=== PATIENT | female | born 1985 | race Caucasian/White ===

== ENCOUNTER 2018-04-12 12:43 | Emergency (ER) | payer BC ==
[2018-04-12] MEDS ORDERED: ISOVUE-370 76%-LOCM 1 ML ONE (13:26)
[2018-04-12 15:02] LABS: #Lymphocytes 1.3 thou/uL (1.20-3.40); #Monocytes 0.4 thou/uL (0.11-0.59); #Neutrophils 9.6 thou/uL (1.40-6.50); %Eosinophils 0.2 % (0.0-10.0); %Lymphocytes 11.8 % (21.0-51.0); %Monocytes 3.4 % (0.0-10.0); %Neutrophils 84.6 % (42.0-75.0); Hemoglobin 13.7 g/dL (12.0-16.0); Mean Corpuscular HGB CONC 33.9 g/dL (32.0-36.0); Mean Corpuscular Hemoglobin 31.5 pg (27.0-31.0); Mean Corpuscular Volume 92.7 fl (81.0-99.0); Mean Platelet Volume 6.7 fL (7.4-10.4); Platelet Count 323 thou/uL (130-400); RBC Distribution Width 11.2 % (11.5-14.5); Red Blood Cell (RBC) Count 4.36 mill/uL (4.20-5.40); White Blood Cell (WBC) Count 11.3 thou/uL (4.8-10.8)
[2018-04-12 15:07] LABS: BHCG - Serum Negative (NEGATIVE); Pregs Control Background? CLEAR/WHITE (CLR/WHITE); Pregs Control Bar Appear? YES (CONTROL BAR)
[2018-04-12 15:20] LABS: Bilirubin Negative (Negative); Blood, Urine Negative (Negative); Clarity CLEAR (Clear); Glucose, Urine (Dipstick) Negative (Negative); Leukocyte Negative (Negative); Nitrite Negative (Negative); Protein, Urine (Dipstick) Negative (Neg-Trace); Specific Gravity, Urine 1.009 (1.002-1.036); Urobilinogen 0.2 mg/dL (0.2-1.0)
[2018-04-12 15:26] LABS: ALT (SGPT) 17 U/L (8-55); AST (SGOT) 15 U/L (5-34); Albumin 4.6 g/dL (3.5-5.0); Alkaline Phosphatase 77 U/L (40-150); Anion Gap 13 mmol/L (10-20); BUN (Urea Nitrogen) 10 mg/dL (7.0-18.7); Bilirubin, Total 0.4 mg/dL (0.2-1.2); CK (CPK) 57 U/L (29-168); Calc. Creatinine Clearance 0 mL/min (70-130); Calcium 9.5 mg/dL (7.8-10.44); Carbon Dioxide 24 mmol/L (22-29); Chloride 105 mmol/L (98-107); Estimated GFR-MDRD 87; Globulin 3.2 g/dL (2.4-3.5); Glucose 101 mg/dL (70-105); Lipase Less than 4 U/L (8-78); Potassium 4.2 mmol/L (3.5-5.1); Protein, Total 7.8 g/dL (6.0-8.3); Sodium 138 mmol/L (136-145)
--- NOTE | 2018-04-12 15:49 | ULT ---
RIGHT UPPER QUADRANT ULTRASOUND: INDICATION: Right upper quadrant abdominal pain. FINDINGS: No focal hepatic lesion is evident. The gallbladder is normal-appearing. No sonographic Andrade's sign is reported. The common bile duct measured 1 mm. Visualized aspects of the pancreas are unremarkable. The right kidney measures 9.2 x 4.3 x 6.1 cm. IMPRESSION: No acute sonographic abnormality. POS: [facility]
[2018-04-12] MEDS ORDERED: Morphine 4 MG/ML VIAL ONE (15:59)
--- NOTE | 2018-04-12 17:38 | CT ---
CT OF THE ABDOMEN AND PELVIS WITH IV CONTRAST: 04/12/18 HISTORY: Right sided abdominal pain. FINDINGS: There is mild bibasilar atelectasis. The liver, spleen, pancreas, adrenal glands and kidneys appear within normal limits. No free fluid or large lymph nodes are evident. There is a normal appendix in the right lower quadran t of the abdomen. The colon demonstrates minimal residual stool. Small bowel is of normal caliber. No free fluid is quyen dent. Bladder, rectum, and perirectal soft tissues are unremarkable. No definite acute osseous abnormality is evident. IMPRESSION: No CT explanation for the patient's right sided abdominal pain. POS: [facility]
== END 2018-04-12 18:03 | disposition home or self-care (01) ==
LOC: ERS 12:43
DX: R10.11 Right upper quadrant pain (principal); F41.9 Anxiety disorder, unspecified; E78.5 Hyperlipidemia, unspecified; Z79.891 Long term (current) use of opiate analgesic; Z79.899 Other long term (current) drug therapy
CPT/HCPCS: 36415; 74177; 76705; 80053; 81003; 82550; 83690; 84703; 85025; 93005; 96361; 96374; J2270

== ENCOUNTER 2018-04-16 08:18 | Outpatient (CLI) | payer BC ==
--- NOTE | 2018-04-16 13:11 | NM ---
NUCLEAR MEDICINE HEPATOBILIARY SCAN: DATE: 04/16/18. HISTORY: A 32-year-old female with generalized abdominal pain. TECHNIQUE: [id number] dose: 5.1 mCi. Ensure (fatty meal) dose: 8 oz. [id number] injected IV. Dynamic anterior scintigraphy of abdomen for 1 hour. Fatty meal given. Additional dynamic anterior scintigraphy of abdomen. Counts obtained over gallbladder. Time-activit y curve generated. FINDINGS: There is normal uptake and washout of activity from the liver. The gallbladder begins to appear at a n appropriate time, and fills normally. Bowel activity is visualized at close to 1 hour. Following fatty meal administration, a gallbladder ejection fraction of 37% is obtained. IMPRESSION: Gallbladder ejection fraction of 37%, at lower limits of normal to abnormal range. JN R POS: [facility]
== END 2018-04-16 08:19 | disposition home or self-care (01) ==
LOC: NM 08:18
PROVIDERS: ATTEND Family Medicine
DX: R10.84 Generalized abdominal pain (principal)
CPT/HCPCS: 78227; A9537

== ENCOUNTER 2018-04-23 09:55 | Outpatient (CLI) | payer BC ==
[2018-04-23 10:54] LABS: #Basophils 0.1 thou/uL (0.0-0.2); #Eosinphils 0.1 thou/uL (0.0-0.7); #Lymphocytes 1.9 thou/uL (1.20-3.40); #Monocytes 0.3 thou/uL (0.11-0.59); #Neutrophils 3.4 thou/uL (1.40-6.50); %Basophils 1.1 % (0.0-1.0); %Eosinophils 0.9 % (0.0-10.0); %Lymphocytes 32.5 % (21.0-51.0); %Monocytes 5.9 % (0.0-10.0); %Neutrophils 59.6 % (42.0-75.0); Hemoglobin 14.2 g/dL (12.0-16.0); Mean Corpuscular HGB CONC 33.5 g/dL (32.0-36.0); Mean Corpuscular Hemoglobin 31.5 pg (27.0-31.0); Mean Corpuscular Volume 94.2 fl (81.0-99.0); Platelet Count 289 thou/uL (130-400); RBC Distribution Width 11.3 % (11.5-14.5); Red Blood Cell (RBC) Count 4.52 mill/uL (4.20-5.40); White Blood Cell (WBC) Count 5.7 thou/uL (4.8-10.8)
[2018-04-23 11:18] LABS: ALT (SGPT) 12 U/L (8-55); AST (SGOT) 13 U/L (5-34); Albumin 4.5 g/dL (3.5-5.0); Alkaline Phosphatase 75 U/L (40-150); Anion Gap 12 mmol/L (10-20); BUN (Urea Nitrogen) 6 mg/dL (7.0-18.7); Bilirubin, Total 0.4 mg/dL (0.2-1.2); Calc. Creatinine Clearance 0 mL/min (70-130); Calcium 9.6 mg/dL (7.8-10.44); Carbon Dioxide 26 mmol/L (22-29); Chloride 105 mmol/L (98-107); Estimated GFR-MDRD 81; Globulin 2.5 g/dL (2.4-3.5); Glucose 104 mg/dL (70-105); Potassium 4.1 mmol/L (3.5-5.1); Sodium 139 mmol/L (136-145)
[2018-04-23 11:21] LABS: BHCG - Serum Negative (NEGATIVE); Pregs Control Background? CLEAR/WHITE (CLR/WHITE); Pregs Control Bar Appear? YES (CONTROL BAR)
== END 2018-04-23 09:56 | disposition home or self-care (01) ==
LOC: LABBT 09:55
PROVIDERS: ATTEND Surgery
DX: Z01.812 Encounter for preprocedural laboratory examination (principal); K82.8 Other specified diseases of gallbladder
CPT/HCPCS: 80053; 84703; 85025

== ENCOUNTER 2018-04-24 06:56 | Day surgery (SDC) | payer BC ==
[2018-04-23 10:18] VITALS: BMI 30.2
[2018-04-24] MEDS ORDERED: CEFAZOLIN/Water 2 GM/20 ML SYRINGE ONE (07:34)
[2018-04-24] MEDS ORDERED: Midazolam HCl 2 mg/2 ml Vial ONE ×2 (07:34→08:39)
[2018-04-24] MEDS ORDERED: Scopolamine 1.5 mg/72 hour Patch ONE (08:39)
[2018-04-24] MEDS ORDERED: Famotidine/PF 20 mg/2ml Vial ONE (09:21)
[2018-04-24] MEDS ORDERED: Fentanyl 100 MCG/2 ML VIAL ONE ×3 (09:21→12:37)
[2018-04-24] MEDS ORDERED: Bupivacaine/Epinephrine 0.25% 30 ML VIAL ONE (09:26)
[2018-04-24] MEDS ORDERED: Albuterol Sulfate HFA (OR ONLY) ONE (09:36)
[2018-04-24] MEDS ORDERED: Ondansetron HCl/PF 4 MG/2 ML Vial ONE (13:17)
[2018-04-24] MEDS ORDERED: Ketorolac Tromethamine 30 MG/ML VIAL ONE (13:17)
[2018-04-24] MEDS ORDERED: Lidocaine 1% PF 5 ML VIAL ONE (13:17)
[2018-04-24] MEDS ORDERED: PROPOFOL 200 MG/20 ML VIAL ONE (13:17)
[2018-04-24] MEDS ORDERED: Glycopyrrolate 0.2 MG/ML 5 ML SYRINGE ONE (13:17)
[2018-04-24] MEDS ORDERED: Dexamethasone 20 MG/5 ML VIAL ONE (13:17)
--- NOTE | 2018-04-24 17:35 | PDOC.OP ---
Operative Note - Operative Note Operative Note: PROCEDURE: Laparoscopic cholecystectomy SURGEON: Zeenat Greenfield M.D. DATE OF PROCEDURE: 04/24/2018 PREOPERATIVE DIAGNOSIS: Cholelithiasis and cholecystitis POSTOPERATIVE DIAGNOSIS: Cholelithiasis and cholecystitis HISTORY: Patient with postprandial right upper quadrant pain and low normal ejection fraction consistent with biliary dyskinesia. FINDINGS: Medically distended thin walled gallbladder without significant adhesions. PROCEDURE IN DETAIL: After informed consent was obtained and appropriate preoperative antibiotics were administered, the patient was taken to the operating room and placed in the supine position and general endotracheal anesthesia was administered. The stomach was decompressed with an OG tube and the abdomen was prepped and draped in standard sterile fashion. Local anesthesia was infused to the skin and subcutaneous tissues at the umbilical level. A transverse skin incision was made. The fascia was elevated and a Veress needle was placed into the abdominal cavity without difficulty. Opening pressure was less than 5 and carbon dioxide gas easily insufflated to an intra- abdominal pressure of 15, which the patient tolerated well. The Veress needle was withdrawn and a [place] port advanced under direct vision. The abdominal cavity was carefully examined. There was no evidence of Veress needle or of trocar injury. Local anesthesia was infused to the skin and subcutaneous tissues at the epigastric, right upper quadrant, and right lateral abdominal sites and trocars were placed under direct vision of the laparoscope. The fundus of the gallbladder was grasped and retracted superiorly. The infundibulum was grasped and retracted laterally. The serosa was stripped inferiorly at the level of the neck of the gallbladder exposing the cystic duct and artery which were traced clearly to their insertion in the gallbladder. Critical view of safety was obtained and the cystic duct and artery were clipped and divided between clips. The gallbladder was then dissected free of the gallbladder bed using hook electrocautery. Prior to complete removal of the gallbladder from the gallbladder bed, the area of the cystic duct and artery stumps was examined. The clips were in good position completely across these structures and there was no bleeding and no leakage of bile. The gallbladder was then placed into an EndoCatch bag and drawn out through the epigastric incision. The epigastric trocar was replaced and the operative site easily irrigated to clear. There was no significant bleeding or spillage of bile. The epigastric trocar was removed and the fascia closed under direct laparoscopic vision with a 0 Vicryl suture on a GraNee needle with excellent technical result. The right upper quadrant and right lateral abdominal trocars were removed and hemostasis verified. Carbon dioxide gas was allowed to desufflate through the umbilical trocar which was then removed. The skin incisions were closed with 4-0 subcuticular Monocryl sutures and Dermabond dressings were placed. The patient was extubated and taken to the recovery room in good condition. There were no complications. ESTIMATED BLOOD LOSS: Minimal. SPECIMEN : Gallbladder and contents.
== END 2018-04-24 14:50 | disposition home or self-care (01) ==
LOC: SDC 06:56
PROVIDERS: ATTEND Surgery
PROC: 0FT44ZZ Resection of Gallbladder, Percutaneous Endoscopic Approach (ICD-10-PCS; principal; 2018-04-24)
DX: K81.1 Chronic cholecystitis (principal); F41.9 Anxiety disorder, unspecified; J45.909 Unspecified asthma, uncomplicated; Z88.2 Allergy status to sulfonamides; Z79.899 Other long term (current) drug therapy
CPT/HCPCS: 88304; 96374; J0131; J1610; J2250; J3010; S0028

== ENCOUNTER 2018-05-03 23:23 | Emergency (ER) | payer BC ==
[2018-05-03] MEDS ORDERED: Ondansetron ODT 8 MG TAB ONE (23:49)
[2018-05-04 00:12] LABS: #Basophils 0.1 thou/uL (0.0-0.2); #Eosinphils 0.1 thou/uL (0.0-0.7); #Lymphocytes 1.4 thou/uL (1.20-3.40); #Monocytes 0.5 thou/uL (0.11-0.59); #Neutrophils 6.9 thou/uL (1.40-6.50); %Basophils 1.6 % (0.0-1.0); %Eosinophils 1.1 % (0.0-10.0); %Lymphocytes 15.5 % (21.0-51.0); %Monocytes 5.8 % (0.0-10.0); %Neutrophils 76.1 % (42.0-75.0); Hemoglobin 14.1 g/dL (12.0-16.0); Mean Corpuscular HGB CONC 34.7 g/dL (32.0-36.0); Mean Corpuscular Hemoglobin 32.4 pg (27.0-31.0); Mean Corpuscular Volume 93.4 fl (81.0-99.0); Mean Platelet Volume 7.2 fL (7.4-10.4); Platelet Count 338 thou/uL (130-400); Red Blood Cell (RBC) Count 4.35 mill/uL (4.20-5.40)
[2018-05-04 00:27] LABS: ALT (SGPT) 17 U/L (8-55); AST (SGOT) 16 U/L (5-34); Albumin 4.3 g/dL (3.5-5.0); Alkaline Phosphatase 84 U/L (40-150); Anion Gap 14 mmol/L (10-20); BUN (Urea Nitrogen) 4 mg/dL (7.0-18.7); Bilirubin, Total 0.2 mg/dL (0.2-1.2); Calc. Creatinine Clearance 0 mL/min (70-130); Calcium 9.4 mg/dL (7.8-10.44); Carbon Dioxide 24 mmol/L (22-29); Chloride 104 mmol/L (98-107); Estimated GFR-MDRD Greater than 90; Globulin 2.9 g/dL (2.4-3.5); Glucose 112 mg/dL (70-105); Potassium 3.7 mmol/L (3.5-5.1); Protein, Total 7.2 g/dL (6.0-8.3); Sodium 138 mmol/L (136-145)
[2018-05-04 00:49] LABS: BHCG - Serum Negative (NEGATIVE); Pregs Control Background? CLEAR/WHITE (CLR/WHITE); Pregs Control Bar Appear? YES (CONTROL BAR)
[2018-05-04] MEDS ORDERED: Morphine 4 MG/ML VIAL ONE (01:10)
[2018-05-04 01:30] LABS: Bilirubin Negative (Negative); Blood, Urine Trace (Negative); Clarity CLEAR (Clear); Glucose, Urine (Dipstick) Negative (Negative); Leukocyte Negative (Negative); Nitrite Negative (Negative); Protein, Urine (Dipstick) Negative (Neg-Trace); Urobilinogen 0.2 mg/dL (0.2-1.0); pH, Urine 6.5 (5.0-9.0)
[2018-05-04 01:32] LABS: Bacteria/HPF None Seen HPF (None Seen); Hyaline Casts/LPF 0-3 HYALINE CAST LPF (0-3 Hyaline); Pathc Cast-AUWi Flag 0.43 (0-2.49); RBC/HPF 0-3 HPF (0-3); Squamous Epithelial 0-3 HPF (0-3); WBC/HPF 0-3 HPF (0-3)
--- NOTE | 2018-05-04 08:27 | CT ---
PRELIMINARY REPORT/[facility]/EMERGENCY AFTER HOURS PROCEDURE: EXAM: CT Abdomen and Pelvis With Intravenous Contrast CLINICAL HISTORY: 32 years old, female; Pain; Abdominal pain; Flank; Right; Patient HX: , F32 presents to ed C/O r side d flank pain, onset x 2 days S/P cholecystectomy. Pain is constant and worsening. Associated with sofi sea. Denies fever, chills, vomiting, stool changes. No other complaints. TECHNIQUE: Axial computed tomography images of the abdomen and pelvis with intravenous contrast. Coronal reforma tted images were created and reviewed. COMPARISON: No relevant prior studies available. FINDINGS: Lung bases: No acute findings. No mass. No consolidation. ABDOMEN: Liver: Status post cholecystectomy. Peripheral hepatic small somewhat linear hypoechoic area in the r egion of the gallbladder fossa. Gallbladder and bile ducts: See above. No calcified stones. No ductal dilation. Pancreas: No acute findings. No ductal dilation. No mass. Spleen: No acute findings. No mass. Adrenals: No acute findings. No mass. Kidneys and ureters: No acute findings.No hydronephrosis. No solid mass. Stomach and bowel: Fluid-filled small bowel loops, nonspecific and can seen with enteritis. No eviden ce of bowel obstruction. Fecal colonic loading. Diverticulosis. Food/debris within stomach. PELVIS: Appendix: Normal appendix. Bladder: No acute findings. No mass. Reproductive: No acute findings. ABDOMEN and PELVIS: Intraperitoneal space: No acute findings. No free air. No significant fluid collection. Bones/joints: No acute fracture. Soft tissues: No acute findings. Vasculature: No acute findings. No abdominal aortic aneurysm. Lymph nodes: No lymphadenopathy. Other findings: IMPRESSION: No definite acute process. Possible enteritis. Findings described above. Thank you for allowing us to participate in the care of your patient. Dictated and Authenticated by: Pierre Santiago MD 05/04/2018 1:36 AM Central Time ([place] & [place]) FINAL REPORT EMERGENCY AFTER HOURS ABDOMEN AND PELVIC CT SCAN WITH IV CONTRAST: Date: 05/04/18 Time: 0057 hours FINDINGS/IMPRESSION: Recent postop cholecystectomy changes. Some scattered fluid within the small bowel, nonspecific, but certainly no evidence for bowel obstruction. No abscess. There is some trace fluid in the pelvis. Nor mal appearing appendix. No renal calculus or obstruction. Report in agreement with preliminary report given on-call by Gabriel. POS: [facility]
[2018-05-04] MEDS ORDERED: ISOVUE-370 76%-LOCM 1 ML ONE (18:33)
== END 2018-05-04 02:10 | disposition home or self-care (01) ==
LOC: ERS 23:23
DX: G89.18 Other acute postprocedural pain (principal); R10.9 Unspecified abdominal pain; K59.00 Constipation, unspecified; E78.5 Hyperlipidemia, unspecified
CPT/HCPCS: 74177; 80053; 81003; 81015; 84703; 85025; 96361; 96374; J2270

== ENCOUNTER 2018-05-04 19:05 | Emergency (ER) | payer BC ==
[2018-05-04] MEDS ORDERED: Ondansetron HCl/PF 4 MG/2 ML Vial SLOW IVP SCH (21:15)
[2018-05-04] MEDS ORDERED: Metoclopramide HCl 10 MG/2 ML VIAL ONE (21:58)
[2018-05-04] MEDS ORDERED: diphenhydrAMINE 50 MG/ML VIAL ONE (21:58)
== END 2018-05-04 23:15 | disposition home or self-care (01) ==
LOC: ERS 19:05
DX: R11.2 Nausea with vomiting, unspecified (principal); K59.00 Constipation, unspecified; E78.5 Hyperlipidemia, unspecified
CPT/HCPCS: 96361; 96365; 96375; J1200; J2405; J2765

== ENCOUNTER 2019-05-28 15:21 | Outpatient (CLI) | payer BC ==
--- NOTE | 2019-05-28 15:38 | RAD ---
EXAM: XR Lumbar Spine 2 Or 3 View PROVIDED CLINICAL HISTORY: Low back pain COMPARISON: None FINDINGS: There are 5 nonrib-bearing lumbar-type vertebral bodies. There is mild loss of intervertebral disc he ight at the L5-S1 level. The remaining intervertebral disc heights as well as vertebral body heights are within normal limits. There is no fracture or subluxation. Surgical clips overlie the right upper quadrant. IMPRESSION: No acute findings involving lumbar spine.
== END 2019-05-28 15:22 | disposition home or self-care (01) ==
LOC: BICRAD 15:21
PROVIDERS: ATTEND Internal Medicine Rheumatology
DX: M54.5 Low back pain (principal)
CPT/HCPCS: 72100

== ENCOUNTER 2019-09-07 15:57 | Outpatient (CLI) | payer BC ==
--- NOTE | 2019-09-07 16:18 | RAD ---
Right RIBS 4 views HISTORY: Right chest wall pain. FINDINGS: No displaced rib fracture or pneumothorax. No aggressive osseous erosions. IMPRESSION: No abnormalities are demonstrated.
== END 2019-09-07 15:58 | disposition home or self-care (01) ==
LOC: BICRAD 15:57
PROVIDERS: ATTEND Physical Medicine & Rehabilitation
DX: R07.89 Other chest pain (principal)

== ENCOUNTER 2019-12-17 08:21 | Outpatient (CLI) | payer BC ==
--- NOTE | 2019-12-17 09:10 | RAD ---
EXAM: 3 views of the right hand COMPARISON: None HISTORY: Hand pain. History of inflammatory arthritis FINDINGS: 3 views of the hand shows no evidence of acute fracture or dislocation. No degenerative rah nges are seen. No soft tissue swelling is present. IMPRESSION: Unremarkable exam.
--- NOTE | 2019-12-17 09:17 | RAD ---
RADIOGRAPH LEFT HAND 3VIEWS: DATE: 12/17/2019 HISTORY: 34-year-old female with inflammatory arthritis and pain in left hand. FINDINGS: There is no evidence of fracture or dislocation. There is no evidence of periostitis, permeative lesi on, osteolytic lesion, or osteoblastic lesion. The joint spaces are maintained without erosions or significant osteophytes. IMPRESSION: Normal
--- NOTE | 2019-12-17 09:48 | RAD ---
LEFT HIP TWO VIEWS: INDICATIONS: Left hip pain. COMPARISON: None. FINDINGS: No acute fracture or subluxation is evident. Bone mineralization is normal appearing. Soft tissue is normal appearing. IMPRESSION: Radiographically normal left hip. POS: [facility]
--- NOTE | 2019-12-17 09:48 | RAD ---
RIGHT HIP TWO VIEWS: INDICATIONS: History of right hip pain and sacroiliitis. COMPARISON: None. FINDINGS: Joint spaces are preserved. Bone mineralization is normal appearing. The visualized right SI joint is normal appearing. IMPRESSION: Radiographically normal right hip. POS: [facility]
--- NOTE | 2019-12-17 09:50 | RAD ---
LUMBAR SPINE TWO VIEWS: INDICATIONS: Low back pain. COMPARISON: Prior exam dated 05/28/2019. FINDINGS: Bone mineralization is normal appearing. Five lumbar type vertebral bodies are present. Mild disk deg enerative disease is stable involving L4-L5 and L3-L4. Spinal alignment is preserved. Surgical clips are seen within the right upper quadrant of the abdomen. IMPRESSION: Mild disk degenerative disease of the lumbar spine. No acute osseous abnormality. POS: [facility]
--- NOTE | 2019-12-17 09:51 | RAD ---
AP PELVIS: INDICATIONS: History of sacroiliitis. FINDINGS: The SI joints appear preserved. The hips are normal appearing. The symphysis pubis is normal appearin g. Bone mineralization is normal appearing. The visualized bowel gas pattern is normal appearing. IMPRESSION: Radiographically normal appearing pelvis. POS: [facility]
== END 2019-12-17 08:22 | disposition home or self-care (01) ==
LOC: SCSRAD 08:21
DX: M05.79 Rheumatoid arthritis with rheumatoid factor of multiple sites without organ or systems involvement (principal); M25.50 Pain in unspecified joint; M51.36 Other intervertebral disc degeneration, lumbar region
CPT/HCPCS: 72100; 72170